=== PATIENT | female | born 1955 | race Caucasian/White ===

== ENCOUNTER 2017-09-26 14:21 | Outpatient (CLI) | payer BC | END 2017-09-26 14:22 | disposition home or self-care (01) | LOC: BICMAMMO 14:21 | PROVIDERS: ATTEND Family Medicine | DX: R92.8 Other abnormal and inconclusive findings on diagnostic imaging of breast (principal); N63.20 Unspecified lump in the left breast, unspecified quadrant; N64.89 Other specified disorders of breast | CPT/HCPCS: 77066; G0279 ==

== ENCOUNTER 2018-05-13 07:10 | Outpatient (CLI) | payer BC ==
[2018-05-13 07:41] LABS: #Basophils 0.1 thou/uL (0.0-0.2); #Eosinphils 0.2 thou/uL (0.0-0.7); #Monocytes 0.7 thou/uL (0.11-0.59); %Basophils 1.7 % (0.0-1.0); %Eosinophils 2.5 % (0.0-10.0); %Lymphocytes 28.4 % (21.0-51.0); %Monocytes 9.5 % (0.0-10.0); %Neutrophils 57.9 % (42.0-75.0); Hemoglobin 13.2 g/dL (12.0-16.0); Mean Corpuscular HGB CONC 32.7 g/dL (32.0-36.0); Mean Corpuscular Hemoglobin 29.1 pg (27.0-31.0); Mean Corpuscular Volume 88.8 fL (78.0-98.0); Mean Platelet Volume 11.3 fL (7.4-10.4); Platelet Count 165 thou/uL (130-400); RBC Distribution Width 12.3 % (11.5-14.5); Red Blood Cell (RBC) Count 4.54 mill/uL (4.20-5.40); White Blood Cell (WBC) Count 6.9 thou/uL (4.8-10.8)
[2018-05-13 07:42] LABS: Bilirubin Negative (Negative); Blood, Urine Trace (Negative); Clarity Clear (Clear); Glucose, Urine (Dipstick) Negative (Negative); Leukocyte Negative (Negative); Nitrite Negative (Negative); Protein, Urine (Dipstick) Negative (Neg-Trace); Specific Gravity, Urine 1.028 (1.002-1.036); Urobilinogen 0.2 mg/dL (0.2-1.0); pH, Urine 5.5 (5.0-9.0)
[2018-05-13 07:45] LABS: ALT (SGPT) 12 U/L (8-55); AST (SGOT) 12 U/L (5-34); Albumin 4.1 g/dL (3.5-5.0); Alkaline Phosphatase 74 U/L (40-150); Anion Gap 14 mmol/L (10-20); BUN (Urea Nitrogen) 20 mg/dL (9.8-20.1); Bilirubin, Total 0.4 mg/dL (0.2-1.2); Calc. Creatinine Clearance 0 mL/min (70-130); Calcium 9.4 mg/dL (7.8-10.44); Carbon Dioxide 28 mmol/L (22-29); Cardiac Risk 4.2 (Less than 4.5); Chloride 105 mmol/L (98-107); Cholesterol 190 mg/dl (< 200 Desired); Estimated GFR-MDRD 75; Globulin 2.8 g/dL (2.4-3.5); Glucose 134 mg/dL (70-105); HDL Cholesterol 45 mg/dL (>60 Neg Risk); LDL Cholesterol, Calculated 123 mg/dL; Potassium 4.7 mmol/L (3.5-5.1); Protein, Total 6.9 g/dL (6.0-8.3); Sodium 142 mmol/L (136-145); Triglycerides 108 mg/dL (Less than 150)
[2018-05-13 07:55] LABS: Bacteria/HPF Rare-Few HPF (None Seen); RBC/HPF 0-3 HPF (0-3); Squamous Epithelial 0-3 HPF (0-3); WBC/HPF None Seen HPF (0-3)
[2018-05-13 10:58] LABS: Hemoglobin A1c 5.8 % (4.0-6.0)
== END 2018-05-13 07:11 ==
LOC: SCSLAB 07:10
PROVIDERS: ATTEND Family Medicine
DX: Z00.00 Encounter for general adult medical examination without abnormal findings (principal); E11.9 Type 2 diabetes mellitus without complications; E55.9 Vitamin D deficiency, unspecified
CPT/HCPCS: 36415; 80053; 80061; 81001; 82306; 83036; 85025

== ENCOUNTER 2019-06-16 14:12 | Outpatient (CLI) | payer BC ==
--- NOTE | 2019-06-16 14:43 | MMO ---
Bilateral MAMMO Bilat Screen [facility]. CLINICAL HISTORY: Patient is 63 years old and is seen for screening. The patient has no family history of breast cancer. The patient has no personal history of cancer. VIEWS: The views performed were: bilateral craniocaudal with tomosynthesis and bilateral mediolateral oblique with tomosynthesis. FILMS COMPARED: The present examination has been compared to prior imaging studies performed at [facility] on 06/22/2015, 12/28/2015, 08/16/2016 and 09/26/2017. This study has been interpreted with the assistance of computer-aided detection. MAMMOGRAM FINDINGS: There are scattered fibroglandular densities. There is a stable focal asymmetry seen in the left breast. Nodularity is stable. There are no suspicious masses, suspicious calcifications, or new areas of architectural distortion. IMPRESSION: THERE IS NO MAMMOGRAPHIC EVIDENCE OF MALIGNANCY. A ROUTINE FOLLOW-UP MAMMOGRAM IN 1 YEAR IS RECOMMENDED. THE RESULTS OF THIS EXAM WERE SENT TO THE PATIENT. ACR BI-RADS Category 2 - Benign finding MAMMOGRAPHY NOTE: 1. A negative mammogram report should not delay a biopsy if a dominant of clinically suspicious mass is present. 2. Approximately 10% to 15% of breast cancers are not detected by mammography. 3. Adenosis and dense breasts may obscure an underlying neoplasm. Reported by: ANKIT WYATT MD Electonically Signed: [id number]
== END 2019-06-16 14:13 | disposition home or self-care (01) ==
LOC: BICMAMMO 14:12
PROVIDERS: ATTEND Family Medicine
DX: Z12.31 Encounter for screening mammogram for malignant neoplasm of breast (principal)
CPT/HCPCS: 77063; 77067

== ENCOUNTER 2021-06-01 13:45 | Outpatient (CLI) | payer BC | END 2021-06-01 13:46 | disposition home or self-care (01) | LOC: BICMAMMO 13:45 | PROVIDERS: ATTEND Family Medicine | DX: Z12.31 Encounter for screening mammogram for malignant neoplasm of breast (principal) | CPT/HCPCS: 77063; 77067 ==

== ENCOUNTER 2022-10-10 13:55 | Outpatient (CLI) | payer BC | END 2022-10-10 13:56 | disposition home or self-care (01) | LOC: BICMAMMO 13:55 | PROVIDERS: ATTEND Family Medicine | DX: Z12.31 Encounter for screening mammogram for malignant neoplasm of breast (principal) | CPT/HCPCS: 77063; 77067 ==

== ENCOUNTER 2023-10-24 08:30 | Outpatient (CLI) | payer BC | END 2023-10-24 08:31 | disposition home or self-care (01) | LOC: BICMAMMO 08:30 | PROVIDERS: ATTEND Family Medicine | DX: Z12.31 Encounter for screening mammogram for malignant neoplasm of breast (principal); Z13.820 Encounter for screening for osteoporosis; Z78.0 Asymptomatic menopausal state; N64.89 Other specified disorders of breast | CPT/HCPCS: 77063; 77067; 77080 ==

== ENCOUNTER 2023-10-31 13:48 | Outpatient (CLI) | payer BC | END 2023-10-31 13:49 | disposition home or self-care (01) | LOC: BICMAMMO 13:48 | PROVIDERS: ATTEND Family Medicine | DX: N64.89 Other specified disorders of breast (principal) | CPT/HCPCS: G0279 ==

== ENCOUNTER 2025-01-21 14:21 | Outpatient (CLI) | payer MEDICARE | END 2025-01-21 14:22 | disposition home or self-care (01) | LOC: BICMAMMO 14:21 | PROVIDERS: ATTEND Family Medicine | DX: Z12.31 Encounter for screening mammogram for malignant neoplasm of breast (principal) | CPT/HCPCS: 77063; 77067 ==